=== PATIENT | male | born 1955 | race Two or more races ===

== ENCOUNTER 2017-03-04 22:36 | Emergency (ER) | payer BC, OTHER ==
[~2017-03-04] VITALS: Ht 167.6 cm; Wt 68.2 kg
[2017-03-04 22:37] VITALS: BP 146/82
[2017-03-04] MEDS ORDERED: HYDROcodone/APAP 5/325 TABLET PO ONE (23:30)
[2017-03-04] MEDS ORDERED: PLEASE ENTER ALLERGIES MC SCH ×2 (23:45)
[2017-03-05] MEDS ORDERED: HYDROcodone/APAP 5/325 TABLET ONE
== END 2017-03-05 00:41 | disposition home or self-care (01) ==
LOC: ED 23:59
DX: S83.91XA Sprain of unspecified site of right knee, initial encounter (principal); W10.9XXA Fall (on) (from) unspecified stairs and steps, initial encounter; Y93.89 Activity, other specified; Y92.099 Unspecified place in other non-institutional residence as the place of occurrence of the external cause; Y99.8 Other external cause status
CPT/HCPCS: 29505; 99284